=== PATIENT | female | born 1935 | race Caucasian/White ===

== ENCOUNTER → 2017-05-18 | Outpatient (CLI) | payer OTHER ==
[~2017-05-18] MED LIST: ALEVE220 M1 PO; AMITRIPTYLINE100 MG PO; AMITRYPTYLINE PO; ASPIRIN EC81 M1 PO; ASPIRIN81 MG PO; B-121000 MC1 PO; CALCIUM500 MG PO; CARBATROL100 MG PO; COLCRYS0.6 M2 PO; ENFOLAST TABLE1 EACH PO; EVISTA60 M1 PO; EVISTA60 MG PO; FENOFIBRATE67 MG PO; FISH OIL 1,0001 CAP PO; FISH OIL500 M1 PO; FLAGYL250 M1 PO; GENFIBROZIL PO; HYDROCHLOROTHIA25 MG PO; IBUPROFEN PO; IRON325 ( 65 ) PO; KCL PO; LIPITOR PO; LIPITOR40 MG PO; LISINOPRIL10 MG PO; LOPID600 MG PO; LORTAB 7.5-5001 TAB PO; MAGNESIUM GLUC200 MG PO; MAGNESIUM400 MG PO; MYRBETRIQ25 MG PO; OMEGA 3 500 SO1 EACH PO; PERCOCET 5/321 UDTAB PO; PHENERGAN PO; POTASSIUM CHLO10 ME1 PO; PRILOSEC PO; PROBIOTIC-DIGE1 EACH PO; RESTASIS32 EA OP; RESTASIS32 EA OU; TEGRETOL-XR100 MG PO; TRAMADOL HCL50 M2 PO; TRILEPTAL300 MG PO; TYLENOL PM EX-S1 TA4 PO; VICODIN 5/1 TAB 5/50 PO; VITAMIN D1000 UNIT PO; ZESTORETIC PO; ZESTRIL10 M1 PO; ZOCOR PO
--- NOTE | ~2017-05-18 | CT55 ---
[facility] A Service of [facility] RADIOLOGY TEXT RESULTS PATIENT: BEATRICE MOULTON LOCATION: [facility] : 37 UNIT #: [id number] AGE: [address]: Fauzia Ryan SEX: F ORDER DR: [id number] [address] [address] [id number] O MR#: [id number] Acc #: [id number] NAME: BEATRICE MOULTON : 1935 SEX: F STUDY DATE/TIME: 05/18/2017 12:42 UNIT: [facility] ROOM: STUDY DESCRIPTION: CT Chest W Con Attending Physician: Fazuia Ryan A.P.R.N. Referring Physician: Fauzia Ryan A.P.R.N. Ordering Physician: Fauzia Ryan A.P.R.N. Primary Care Physician: Wil Garcia M.D. MEDICAL IMAGING REPORT This report is preliminary unless electronic signature is present. EXAM CT chest INDICATIONS Pulmonary nodules. Adrenal nodule. Prior history of right-sided breast cancer and colon cancer. TECHNIQUE CT of the chest utilizing 100 mL Isovue-370 IV contrast. Coronal and sagittal reconstructions were obtained. This CT exam was performed with one or more of the following radiation dose reduction techniques: automatic exposure control, adjustment of mA and/or kV according to patient size, and iterative reconstruction. COMPARISON CT chest 04/23/2016 and 06/15/2015. FINDINGS The pulmonary nodule in the anterior aspect of the right upper lobe has slightly increased in size from prior studies. This nodule measures 1.2 x 1.1 x 1.1 cm, compared to 1 x 0.9 x 0.9 cm in October 2014. Given this minimal change, this is likely benign, however it would be reasonable to continue to follow this nodule. 3 mm right lower lobe pulmonary nodule is unchanged and considered benign. There is background emphysema. Central airways are patent. No pathologically enlarged mediastinal or hilar lymph nodes. The thoracic aorta is normal in caliber. No pericardial or pleural effusion. Patient has bilateral breast reconstruction. [facility] A Service of [facility] RADIOLOGY TEXT RESULTS PATIENT: BEATRICE MOULTON [id number] 37 UNIT #: [id number] AGE: [address]: Fauzia Ryan SEX: F ORDER DR: There is slight nodularity of the right adrenal gland without a discrete nodule. This appearance is unchanged from prior studies. IMPRESSION 1. The 1.2 cm right upper lobe pulmonary nodule has slightly changed from prior studies dating back to 2013. Given the minimal change, it is still likely benign, however should continue to be followed. The nodule is a large enough for further evaluation with PET/CT. 2. 3 mm pulmonary nodule right lower lobe is benign and unchanged from prior exams. Dictated by... Lee Quiñones M.D. THIS IS AN ELECTRONICALLY VERIFIED REPORT Lee Quiñones M.D. at 05/20/2017 2:16 PM PRADEEP/leo TD: 05/20/2017 10:21 JOB #: [id number] MEDICAL IMAGING REPORT Page 1 of 1
[2017-05-18 12:50] LABS: POC - CREATININE 0.93 mg/dL (0.44-1.03); POC - GFR >60.0 mL/min (>60)
== END | disposition home or self-care (01) ==
LOC: SCT 12:22
PROVIDERS: Nurse Practitioner Acute Care
DX: Q89.1 Congenital malformations of adrenal gland (principal); R91.8 Other nonspecific abnormal finding of lung field
CPT/HCPCS: 71260; 82565; Q9967

== ENCOUNTER 2017-06-23 14:40 | Inpatient (IN) | payer OTHER ==
[~2017-06-23] VITALS: Ht 160 cm; Wt 59.9 kg
--- NOTE | ~2017-06-23 | HP ---
Unit #: [id number] #: [id number] Patient: BEATRICE MOULTON [id number] [address] [address] [id number] I MR#: [id number] NAME: BEATRICE MOULTON. ROOM: 470 Age: 81 Sex: F Admission Date: 06/23/2017 : 1935 Attending Physician: Winston Ramirez M.D. Primary Care Physician: Wil Garcia M.D. HISTORY AND PHYSICAL ADMISSION DIAGNOSES 1. Abdominal pain. 2. Nausea, vomiting and diarrhea. 3. History of colon cancer. 4. History of breast cancer. 5. History of TMJ. 6. Osteoporosis. 7. GERD. 8. Degenerative disk disease. 9. Chronic pain. 10. Dyslipidemia. 11. Hypertension. HISTORY OF PRESENT ILLNESS Ms. Beatrice Moulton is an 81-year-old female, a patient of Dr. Garcia, who saw Dr. Kumar at the office today with the complaints of nausea, vomiting and diarrhea, along with abdominal pain for the last several days. She denies any fever, chills. Denies any bloody stools or bloody emesis. Complains of right upper quadrant pain, which is sharp, 8/10, without any radiation to any other parts of the body. Otherwise, denies any chest pain, dyspnea, dizziness, syncope, shortness of air, fever or chills. REVIEW OF SYSTEMS A 12-point review of systems on this patient is basically negative except as above. PAST MEDICAL HISTORY Significant for history of trigeminal neuralgia, hypertension, dyslipidemia, chronic pain, degenerative disk disease, osteoporosis, GERD with TMJ, colon cancer and breast cancer. PAST SURGICAL HISTORY Significant for , hysterectomy, multiple hernia repairs, appendectomy, cholecystectomy, colon resection and mastectomy. HOME MEDICATIONS Include aspirin, Lipitor, Tegretol, lisinopril, magnesium gluconate, potassium chloride, vitamin B12, fish oil, vitamin D, probiotic, Myrbetriq and Prilosec. ALLERGIES Propoxyphene, morphine, codeine, meperidine. Unit #: [id number] #: [id number] Patient: BEATRICE MOULTON SOCIAL HISTORY No current history of tobacco, alcohol or illicit drugs. FAMILY HISTORY Family history is unremarkable. PHYSICAL EXAMINATION GENERAL: The patient is an 81-year-old female in mild distress secondary to abdominal pain. Looks dehydrated. HEENT: Head is atraumatic. Pupils are equal, round and reactive to light. Oropharynx is clear. NECK: Neck is supple. No masses. No JVD. No bruit. RESPIRATORY: Chest is diminished bilaterally. CARDIOVASCULAR: S1, S2. No murmurs. ABDOMEN: Abdomen is soft but tender in the right upper quadrant without any rebound. Bowel sounds are diminished. EXTREMITIES: Lower extremities have no cyanosis, clubbing or edema. NEUROLOGIC: Patient without any focal deficits. LABS AND DIAGNOSTICS Currently pending. ASSESSMENT AND PLAN 1. Abdominal pain with nausea, vomiting and diarrhea. Will start on supportive care, symptomatic management. IV fluids. Will start on some Dilaudid and Zofran. Check stool for C. diff. Will get CT of the abdomen and pelvis without contrast since she continues with nausea, vomiting and diarrhea and appears dehydrated. I do not have her renal function. Will also get LSA consult since she carries a history of colon cancer in the past. LSA will be consulted. 2. History of colon cancer status post resection. 3. History of breast cancer status post mastectomy. 4. History of trigeminal neuralgia. 5. History of hypertension. 6. History of dyslipidemia. 7. Chronic pain and degenerative disk disease. 8. History of GERD. 9. GI and DVT prophylaxis with IV PPI and SCDs. Dictated by Tiarra Neal/zac TD: 06/24/2017 10:24 JOB #: [id number] Unit #: [id number] #: [id number] Patient: SAIGEBEATRICE Anjum HISTORY AND PHYSICAL Page 1 of 1 X Winston Ramirez MD HISTORY AND PHYSICAL
--- NOTE | ~2017-06-23 | DS ---
Unit #: [id number] #: [id number] Patient: BEATRICE MOULTON [id number] [address] [address] [id number] I MR#: [id number] NAME: BEATRICE MOULTON. ROOM: 224 Age: 81 Sex: F Admission Date: 06/23/2017 : 1935 Discharge Date: 06/29/2017 Attending Physician: Winston Ramirez M.D. Primary Care Physician: Wil Garcia M.D. DISCHARGE SUMMARY DISCHARGE DIAGNOSES 1. Abdominal pain resolved, status post surgery evaluation, continue Flagyl for a full ten days. 2. Diarrhea, which again resolved. 3. Urinary tract infection was treated with the Rocephin, status post completion. Culture showed klebsiella sensitive to Rocephin. 4. Hypertension. Continue home meds. 5. History of colon cancer. 6. History of breast cancer. 7. Dyslipidemia, will continue home meds. 8. Chronic pain that has been discharged on Percocet. DISCHARGE MEDICATIONS 1. Tegretol 100 mg p.o. q.6 hour. 2. Lactobacillus 2 tablets daily. 3. Pendergrass fatty acid capsules 500 mg daily. 4. Myrbetriq 25 mg daily. 5. Lipitor 40 mg daily. 6. Lisinopril 10 mg daily. 7. Flagyl 250 mg p.o. t.i.d. for six more days. 8. Colchicine 0.6 mg daily. 9. Aspirin 81 mg daily. 10. Percocet 5/325 1 tablet q.6 p.r.n. for pain. 11. Omeprazole 40 mg daily. 12. Magnesium tablets 250 mg q.6. 13. Potassium chloride 20 mEq p.o. t.i.d. 14. Vitamin D 1,000 units p.o. b.i.d. 15. Vitamin B12 300 mg daily. DISPOSITION Going home. FOLLOWUP Followup with the primary care physician next Monday. [facility] STAY LSA, Dr. Goyal and Nephrology, Dr. Blair. LABS, DIAGNOSTICS AND PROCEDURES 1. CT abdomen and pelvis, no acute findings, small hiatal hernia. 2. Urine culture as above, klebsiella sensitive to Rocephin. HISTORY OF PRESENT HOSPITAL STAY Please refer to H and P done by me, for initial presentation on this Unit #: [id number] #: [id number] Patient: BEATRICE MOULTON female. ACTIVE PROBLEMS AND DIAGNOSES Abdominal pain, status post evaluation by surgery stable. Continue Flagyl. Negative CT. Surgery recommendation. Continue Flagyl for ten day course for six more days. Diarrhea resolved. UTI, status post completion of antibiotics for seven days. Culture reported as above, was treated with the IV Rocephin. Hypertension, resume home meds. History of colon cancer and breast cancer. Dyslipidemia, continue home meds. Chronic pain, continue Percocet. Thrombocytopenia. Discharge date platelets 121. Monitor as an outpatient per primary. Dictated by... Tiarra Neal/vick TD: 06/30/2017 06:05 JOB #: [id number] DISCHARGE SUMMARY Page 1 of 1 X Winston Ramirez MD X DISCHARGE SUMMARY
--- NOTE | ~2017-06-23 | CO ---
Unit #: [id number] #: [id number] Patient: BEATRICE MOULTON [id number] [address] [place], [place] [address] [id number] I MR#: [id number] NAME: BEATRICE MOULTON ROOM: [facility] Age: 81 Sex: F Admission Date: 06/23/2017 : 1935 Attending Physician: Winston Ramirez M.D. Primary Care Physician: Wil Garcia M.D. Consultation Date: 06/25/2017 CONSULTATION REPORT REASON FOR CONSULTATION Acute kidney injury and electrolyte disturbance with persistent diarrhea. HISTORY OF PRESENT ILLNESS Ms. Moulton is a very pleasant 81-year-old female, who was admitted back on the with complaints of abdominal pain with diarrhea. This had been ongoing for several days before coming into the hospital. It is persisted here in the hospital. Thus far, workup has been unremarkable and she was started on Flagyl today. She is having very loose watery diarrhea on a very regular basis. We were asked to see because of an admission creatinine that was elevated. She also has had electrolyte disturbances most notably a non-anion gap acidosis and persistent hypokalemia with diarrhea. She is noted to be on lisinopril for hypertension. The patient is lying flat. She denies any chest discomfort or shortness of breath. The Reeves catheter is in place to monitor urine output with no hematuria. She denies any swelling, rashes, or itching. PAST MEDICAL HISTORY Significant for hypertension, trigeminal neuralgia, chronic pain, hyperlipidemia, degenerative disk disease, osteoporosis, GERD, TMJ. She also has a history of colon cancer and has breast cancer listed as a diagnosis. PAST SURGICAL HISTORY , hysterectomy, multiple hernia repairs, appendectomy, cholecystectomy, colon resection, and mastectomy. CURRENT MEDICATIONS As follows; Flagyl 250 mg p.o. t.i.d., IV fluids D5 normal with one amp of bicarb at 100 mL/hour, Tegretol extended release 100 mg b.i.d., baby aspirin daily, Lipitor 40 mg at bedtime, lisinopril 10 mg a day, Myrbetriq 25 mg daily, Protonix 40 mg IV daily, vitamin D 1000 units b.i.d., and p.r.n. ALLERGIES She has quoted allergies to morphine, codeine, propoxyphene, and Demerol. FAMILY HISTORY Unremarkable for kidney problems or other genetic issues. SOCIAL HISTORY The patient has no history of tobacco, alcohol, or drug use. REVIEW OF SYSTEMS Unit #: [id number] #: [id number] Patient: BEATRICE MOULTON A complete 12-point review of systems was completed with the above findings. In addition, she denies any headaches or dizziness. She does feel weak and ill. No nosebleed or sore throat. No earache. No chest pain or palpitations. No cough or hemoptysis. She does have some nausea. The diarrhea is nonbloody. No flank pain. No night sweats or hot flashes. No intolerance to heat or cold. No bleeding issues. Probable weight loss with the acute GI illness. Unless otherwise indicated, the review of systems was negative. PHYSICAL EXAMINATION VITAL SIGNS: The patient is afebrile, pulse 73, respiratory rate 16, and blood pressure 129/46. GENERAL: This is an 81-year-old female, lying flat in bed, who is alert, in no acute distress but clearly does not feel well. HEENT: Head is atraumatic and normocephalic. Eyes show pink conjunctivae with no scleral icterus. No nasal drainage or nosebleed. Oropharynx is dry with no thrush. NECK: Shows no rigidity, no JVD. HEART: Regular rate and rhythm with no significant murmur or rub appreciated. LUNGS: Clear with no wheezing or rhonchi. Breathing is nonlabored. ABDOMEN: Soft, with mild diffuse tenderness to palpation. Bowel sounds are very active. No rebound. No guarding. EXTREMITIES: No lower extremity clubbing, cyanosis, or edema. SKIN: Dry with no rashes. MUSCULOSKELETAL: No joint effusions noted. NEUROLOGICAL: Cranial nerves are grossly intact with no gross motor deficits, but she does have some generalized weakness with her illness. LYMPHATIC: There is no neck or cervical lymphadenopathy. PSYCHIATRIC: Mood and affect appear normal. DIAGNOSTIC STUDIES LABORATORY RESULTS: Fecal occult blood test was positive. Fecal lactoferrin was positive. Urinalysis today showed 1+ protein with some hyaline casts. Chemistry today showed a sodium of 139, potassium 3.3, chloride 116, bicarb 17 for an anion gap of 6, glucose 96, BUN 15, creatinine 0.9. CBC was unremarkable. Clostridium difficile toxin yesterday was negative. Creatinine on admission was 1.6 and has come down to 0.9 in the last 2 days. Bicarbonate has been consistently low since admission as has the potassium over the last few days. Magnesium was low today at 1.4. IMAGING STUDIES: CT of the abdomen and pelvis done on the was unremarkable with no acute findings. ASSESSMENT AND PLAN 1. Acute kidney injury. This looks all to be prerenal in nature from her diarrhea and she is on lisinopril as well. It looks like her creatinine is still above her traditional baseline, which looks to be in the 0.6 to 0.7 range. I will stop her lisinopril and we will continue with IV hydration. 2. Low magnesium. This has been replaced and we will recheck in the morning. 3. Hypokalemia. The patient has received a p.o. dose today and I will add some potassium to her replacement fluids. 4. Non-anion gap metabolic acidosis. We will increase the bicarbonate in her IV fluids. Unit #: [id number] #: [id number] Patient: BEATRICE MOULTON 5. Hypertension. Blood pressure is fine and with her diarrhea, we will hold her angiotensin converting enzyme inhibitor at this time. 6. Diarrhea, questionable cause. Questionable underlying colitis, but infection test have been negative. She has been started on Flagyl and Surgery is seeing. I would like to thank Dr. Adams for this consultation and the opportunity to participate in evaluation and care of Ms. Moulton. Dictated by... Wolf Blair Jr., Ximena. HOLLY/[place] TD: 06/25/2017 23:18 JOB #: [id number] CONSULTATION REPORT Page 1 of 1 X Wolf Blair MD X CONSULTATION REPORT
--- NOTE | ~2017-06-23 | CO ---
Unit #: [id number] #: [id number] Patient: BEATRICE MOULTON [id number] [address] [address] [id number] I MR#: [id number] NAME: BEATRICE MOULTON ROOM: [facility] Age: 81 Sex: F Admission Date: 06/23/2017 : 1935 Attending Physician: Winston Ramirez M.D. Primary Care Physician: Wil Garcia M.D. Consultation Date: 06/24/2017 CONSULTATION REPORT HISTORY OF PRESENT ILLNESS Ms. Moulton is an 81-year-old female, who lives alone, has a history of trigeminal neuralgia and chronic pain syndrome, who presented to her primary care physician on Monday with a 5-day history of diarrhea and then a 2-day history of nausea and vomiting. She denied any fever, chills, or night sweats. She has not had any hematemesis, hematochezia, or melena. She denied any dysuria and has not had any recent treatment with antibiotics. She does take a magnesium supplement four times a day. She denies a history of chronic diarrhea. She was directly admitted to the hospital and a CT scan of the abdomen and pelvis was obtained, which was negative for any acute findings. PAST MEDICAL HISTORY Trigeminal neuralgia, hyperlipidemia, hypertension, chronic pain syndrome, degenerative disk disease, osteoporosis, reflux, temporomandibular joint pain. She has had a previous , hysterectomy, appendectomy, cholecystectomy, colon resection, and multiple hernia repairs. ALLERGIES Her allergies include Darvocet, morphine, codeine, and Demerol. CURRENT MEDICATIONS Per the reconciliation sheet include aspirin, Lipitor, Tegretol, lisinopril, magnesium gluconate, potassium, vitamin B12, fish oil, vitamin D, probiotics, Myrbetriq, and Prilosec. FAMILY HISTORY She is unaware of any chronic or inheritable diseases. SOCIAL HISTORY Denies use of tobacco alcohol or recreational drugs. She lives alone and is retired. REVIEW OF SYSTEMS Otherwise unremarkable. PHYSICAL EXAMINATION VITAL SIGNS: Temperature is 98.4, pulse 79, respirations 17, blood pressure 139/67. GENERAL: She is awake, alert, and oriented. She complains of pain in the distribution of her trigeminal neuralgia. HEENT: Otherwise unremarkable. No scleral icterus. CARDIAC: Regular rhythm. LUNGS: Clear. Unit #: [id number] #: [id number] Patient: BEATRICE MOULTON ABDOMEN: Nondistended. She complains of diffuse tenderness, but has some increased guarding in the right upper quadrant. In the right upper quadrant, there are no rebound and no hernia. EXTREMITIES: No edema. NEUROLOGIC: Grossly intact. DIAGNOSTIC STUDIES LABORATORY RESULTS: Basic metabolic panel showed a serum CO2 of 17. Otherwise, basic metabolic panel was normal. White count 8900 with normal differential. Hemoglobin 12.8, platelets 157,000. No other labs were done. IMAGING STUDIES: CT scan verbal report shows no acute findings. No hernia. ASSESSMENT AND PLAN An 81-year-old female with nausea, vomiting, and diarrhea for several days. She denies any fever or chills and has not had any evidence of blood loss. Stool cultures have been ordered and are pending. I will get a urinalysis. Recheck her labs to include amylase and lipase and get an H pylori serology. She has not been making much urine and I believe she is dehydrated, so normal saline bolus will be administered and we will continue her IV fluids. For now, I will hold her magnesium until we get her serum magnesium level back. Dictated by... Tiarra Omalley/[place] TD: 06/24/2017 12:17 JOB #: [id number] CONSULTATION REPORT Page 1 of 1 X Uri Goyal MD CONSULTATION REPORT
--- NOTE | ~2017-06-23 | CT4 ---
[facility] A Service of [facility] RADIOLOGY TEXT RESULTS PATIENT: BEATRICE MOULTON LOCATION: [facility] 470-01 : 37 UNIT #: [id number] AGE: [address]: Winston Ramirez MD SEX: F ORDER DR: [id number] [facility] [address] [place], [place] [address] [id number] I MR#: [id number] Acc #: [id number] NAME: BEATRICE MOULTON : 1935 SEX: F STUDY DATE/TIME: 06/23/2017 20:41 UNIT: [facility] ROOM: [facility] STUDY DESCRIPTION: CT Abd and Pelv Wo Cont Attending Physician: Winston Ramirez M.D. Ordering Physician: Winston Ramirez M.D. Primary Care Physician: iWl Garcia M.D. MEDICAL IMAGING REPORT This report is preliminary unless electronic signature is present EXAM CT abdomen and pelvis without contrast HISTORY Abdomen pain for 5 days, nausea, vomiting and diarrhea. Weight loss. FINDINGS CT abdomen and pelvis was performed without contrast. This CT exam was performed with one or more of the following radiation dose reduction techniques: Automatic exposure control, adjustment of mA and/or kV according to patient size, and iterative reconstruction. CT ABDOMEN: Small hiatal hernia. Cholecystectomy. Anterior abdominal wall hernia repair with mesh graft. No hepatic mass or biliary dilatation. The spleen, pancreas, kidneys, and adrenal glands are normal. No bowel dilatation. 5.5 cm descending duodenal diverticulum. Normal caliber abdominal aorta. No adenopathy. No ascites. CT PELVIS: Hysterectomy. No free fluid. No bowel dilatation. No adenopathy or ascites. IMPRESSION 1. No acute findings in the abdomen or pelvis. 2. Small hiatal hernia. 3. Cholecystectomy and hysterectomy and anterior abdominal wall hernia repair with mesh graft. 4. Incidental 5.5 cm descending duodenal diverticulum. No bowel obstruction or urinary obstruction. Dictated by... Josue Farfan M.D. [facility] A Service of [facility] RADIOLOGY TEXT RESULTS PATIENT: BEATRICE MOULTON LOCATION: [facility] 470-01 : [birth year] UNIT #: [id number] AGE: [address]: Winston Ramirez MD SEX: F ORDER DR: THIS IS AN ELECTRONICALLY VERIFIED REPORT Josue Farfan M.D. at 06/24/2017 12:07 PM DFL/jayne TD: 06/24/2017 11:11 JOB #: [id number] MEDICAL IMAGING REPORT Page 1 of 1 COPY
--- NOTE | ~2017-06-23 | XA166 ---
[facility] A Service of [facility] RADIOLOGY TEXT RESULTS PATIENT: BEATRICE MOULTON LOCATION: [facility] 470-01 : 37 UNIT #: [id number] AGE: [address]: Winston Ramirez MD SEX: F ORDER DR: [id number] [facility] [address] [place], [place] [address] [id number] I MR#: [id number] Acc #: [id number] NAME: BEATRICE MOULTON. : 1935 SEX: F STUDY DATE/TIME: 06/26/2017 10:22 UNIT: [facility] ROOM: [facility] STUDY DESCRIPTION: XA PICC Line Placement WO Port Attending Physician: Winston Ramirez M.D. Ordering Physician: Winston Ramirez M.D. Primary Care Physician: Wil Garcia M.D. MEDICAL IMAGING REPORT This report is preliminary unless electronic signature is present EXAM Left-sided PICC line placement. INDICATION Need for IV access for a patient with abdominal pain, nausea, vomiting diarrhea. PRE-PROCEDURE The procedure was explained to the patient and/or patient direct marketing representative including risks, benefits, potential complications and potential for alternative forms of treatment. Informed consent was obtained, and prior to initiating the procedure a formal timeout procedure was performed. PROCEDURE Using full standard sterile barrier technique, including caps, gowns, gloves, masks, as well as sterile skin preparation and standard sterile draping, the arm was prepped and draped in the usual fashion, and real-time sterile ultrasound guidance was used to localize an arm vein and to confirm vessel patency. A hard copy ultrasound image was recorded. After local anesthesia with 1% Xylocaine, the vein was punctured using real-time sterile ultrasound guidance, and an 0.018 guidewire was advanced into the superior vena cava, using fluoroscopic guidance. A 5-Cypriot dual-lumen PICC was then measured and deployed with the tip positioned in the superior vena cava. The position of the line was documented with a radiographic image. The line was secured in place with an adhesive dressing and an antibiotic patch was applied. Total fluoro time was 0.4 minutes using 3 mGy. IMPRESSION Successful placement of a 5-Cypriot dual-lumen PowerPICC via the arm under ultrasound and fluoroscopic guidance. The tip of the PICC is in good position in the superior vena cava. [facility] A Service of [facility] RADIOLOGY TEXT RESULTS PATIENT: BEATRICE MOULTON LOCATION: [facility] 470- : 37 UNIT #: [id number] AGE: [address]: Winston Ramirez MD SEX: F ORDER DR: Dictated by... Gayle Perez M.D. THIS IS AN ELECTRONICALLY VERIFIED REPORT Gayle Perez M.D. at 06/27/2017 4:54 PM AFF/gz TD: 06/27/2017 13:04 JOB #: [id number] MEDICAL IMAGING REPORT Page 1 of 1 COPY
[~2017-06-23 14:40] MED LIST changes: -FLAGYL250 M1 PO; -MYRBETRIQ25 MG PO; -OMEGA 3 500 SO1 EACH PO; -PERCOCET 5/321 UDTAB PO; -PROBIOTIC-DIGE1 EACH PO; -VITAMIN D1000 UNIT PO
[2017-06-23] MEDS ORDERED: VITAMIN D1000 UNIT PO (18:53)
[2017-06-23] MEDS ORDERED: PROBIOTIC-DIGE1 EACH PO (18:59)
[2017-06-23] MEDS ORDERED: MYRBETRIQ25 MG PO (19:00)
[2017-06-23] MEDS ORDERED: PRILOSEC PO (19:01)
[2017-06-23 20:17] LABS: HEMATOCRIT 43.4 % (35.0-45.0); MEAN CELL VOLUME 89.2 FL (83-96); MEAN CORPUSCULAR HEMOGLOBIN 28.8 PG (28-34); MEAN CORPUSCULAR HGB CONC 32.3 g/dL (30-36); MEAN PLATELET VOLUME 9.8 FL (6.5-11.5); RED BLOOD COUNT 4.87 X10e (3.90-5.30); RED CELL DISTRIBUTION WIDTH 15.7 % (11.0-15.5); WHITE BLOOD COUNT 10.4 X10e3 (4.0-10.5)
[2017-06-23 20:43] LABS: BUN/CREATININE RATIO 22.5; CALCIUM SERUM 9.2 mg/dL (8.4-10.2); CREATININE SERUM 1.6 mg/dL (0.6-1.4); GLOM FILT RATE Estimated 30.1 mL/min (>60); POTASSIUM 4.1 mmol/L (3.5-5.1)
[2017-06-24 03:45] LABS: HEMOGLOBIN 12.8 gm/dL (12.0-16.0); MEAN CORPUSCULAR HGB CONC 32.9 g/dL (30-36); MEAN PLATELET VOLUME 10.3 FL (6.5-11.5); RED BLOOD COUNT 4.43 X10e (3.90-5.30); WHITE BLOOD COUNT 8.9 X10e3 (4.0-10.5)
[2017-06-24 04:07] LABS: BUN/CREATININE RATIO 37.77; CREATININE SERUM 0.9 mg/dL (0.6-1.4); GLOM FILT RATE Estimated 60.4 mL/min (>60); POTASSIUM 3.7 mmol/L (3.5-5.1)
[2017-06-24 08:50] LABS: ALBUMIN SERUM 3.7 g/dL (3.5-5.0); BILIRUBIN,TOTAL 0.5 mg/dL (0.2-2.0); BUN/CREATININE RATIO 32.22; CALCIUM SERUM 8.7 mg/dL (8.4-10.2); CREATININE SERUM 0.9 mg/dL (0.6-1.4); GLOM FILT RATE Estimated 60.4 mL/min (>60); MAGNESIUM 1.4 mg/dL (1.6-3.0); PHOSPHOROUS 3.3 mg/dL (2.5-4.6); POTASSIUM 3.4 mmol/L (3.5-5.1); PROTEIN TOTAL SERUM 6.3 g/dL (6.0-8.3)
[2017-06-24 17:07] LABS: URINE APPEARANCE CLEAR; URINE BILIRUBIN NEG (NEG); URINE BLOOD NEG (NEG); URINE COLOR YELLOW; URINE GLUCOSE NEG (NEG); URINE KETONE NEG (NEG); URINE LEUKOCYTE ESTERASE NEG (NEG); URINE NITRATE NEG (NEG); URINE PH 5.5 (5-8); URINE PROTEIN TRACE (NEG); URINE SPECIFIC GRAVITY 1.019 (1.003-1.035); URINE UROBILINOGEN 0.2 MG/DL (NEG)
[2017-06-25 03:34] LABS: BASOPHIL% 0.3 % (0-2.5); EOSINOPHIL# 0.1 X10e3 (0-0.7); EOSINOPHIL% 1.1 % (0.0-7.0); HEMATOCRIT 36.5 % (35.0-45.0); LYMPHOCYTE# 1.8 X10e3 (1.0-3.5); LYMPHOCYTE% 22.5 % (17.0-45.0); MEAN CELL VOLUME 88.9 FL (83-96); MEAN CORPUSCULAR HEMOGLOBIN 29.3 PG (28-34); MEAN CORPUSCULAR HGB CONC 32.9 g/dL (30-36); MEAN PLATELET VOLUME 9.8 FL (6.5-11.5); MONOCYTE# 0.8 X10e3 (0-1.0); MONOCYTE% 10.6 % (3.0-12.0); NEUTROPHIL# 5.1 X10e3 (1.5-7.1); NEUTROPHIL% 65.5 % (40-75); PLATELET COUNT 140 X10e3 (140-420); RED BLOOD COUNT 4.11 X10e (3.90-5.30); RED CELL DISTRIBUTION WIDTH 15.4 % (11.0-15.5); WHITE BLOOD COUNT 7.8 X10e3 (4.0-10.5)
[2017-06-25 03:35] LABS: DIFF IND NO
[2017-06-25 04:17] LABS: BUN/CREATININE RATIO 16.66; CALCIUM SERUM 8.5 mg/dL (8.4-10.2); CREATININE SERUM 0.9 mg/dL (0.6-1.4); GLOM FILT RATE Estimated 60.4 mL/min (>60); POTASSIUM 3.3 mmol/L (3.5-5.1)
[2017-06-25 12:32] LABS: URINE APPEARANCE CLOUDY; URINE BILIRUBIN NEG (NEG); URINE BLOOD NEG (NEG); URINE COLOR YELLOW; URINE GLUCOSE NEG (NEG); URINE KETONE NEG (NEG); URINE LEUKOCYTE ESTERASE NEG (NEG); URINE NITRATE NEG (NEG); URINE PH 5.5 (5-8); URINE PROTEIN 1+ (NEG); URINE SPECIFIC GRAVITY 1.021 (1.003-1.035); URINE UROBILINOGEN 0.2 MG/DL (NEG)
[2017-06-25 12:36] LABS: URINE BACTERIA AUWI NEG (NEGATIVE); URINE SQUAMOUS EPITHELIAL CELL MOD /[HPF]
[2017-06-25 13:10] LABS: URINE MUCUS PRESENT
[2017-06-26 03:31] LABS: BASOPHIL% 0.3 % (0-2.5); DIFF IND NO; EOSINOPHIL# 0.1 X10e3 (0-0.7); EOSINOPHIL% 1.3 % (0.0-7.0); HEMATOCRIT 33.8 % (35.0-45.0); HEMOGLOBIN 11.3 gm/dL (12.0-16.0); LYMPHOCYTE# 1.5 X10e3 (1.0-3.5); LYMPHOCYTE% 23.5 % (17.0-45.0); MEAN CELL VOLUME 87.4 FL (83-96); MEAN CORPUSCULAR HEMOGLOBIN 29.3 PG (28-34); MEAN CORPUSCULAR HGB CONC 33.5 g/dL (30-36); MEAN PLATELET VOLUME 9.3 FL (6.5-11.5); MONOCYTE# 0.8 X10e3 (0-1.0); MONOCYTE% 13.1 % (3.0-12.0); NEUTROPHIL% 61.8 % (40-75); PLATELET COUNT 125 X10e3 (140-420); RED BLOOD COUNT 3.87 X10e (3.90-5.30); WHITE BLOOD COUNT 6.5 X10e3 (4.0-10.5)
[2017-06-26 03:59] LABS: BUN/CREATININE RATIO 11.66; CALCIUM SERUM 8.6 mg/dL (8.4-10.2); CREATININE SERUM 0.6 mg/dL (0.6-1.4); GLOM FILT RATE Estimated 86.1 mL/min (>60); MAGNESIUM 1.3 mg/dL (1.6-3.0); PHOSPHOROUS 2.4 mg/dL (2.5-4.6); POTASSIUM 3.2 mmol/L (3.5-5.1)
[2017-06-26] MEDS ORDERED: COLCRYS0.6 M2 PO (22:20)
[2017-06-27 03:14] LABS: BASOPHIL% 0.4 % (0-2.5); EOSINOPHIL% 0.5 % (0.0-7.0); HEMATOCRIT 32.8 % (35.0-45.0); HEMOGLOBIN 11.3 gm/dL (12.0-16.0); LYMPHOCYTE# 1.4 X10e3 (1.0-3.5); LYMPHOCYTE% 15.2 % (17.0-45.0); MEAN CELL VOLUME 85.4 FL (83-96); MEAN CORPUSCULAR HEMOGLOBIN 29.5 PG (28-34); MEAN CORPUSCULAR HGB CONC 34.6 g/dL (30-36); MEAN PLATELET VOLUME 9.2 FL (6.5-11.5); MONOCYTE% 11.7 % (3.0-12.0); NEUTROPHIL# 6.5 X10e3 (1.5-7.1); NEUTROPHIL% 72.2 % (40-75); PLATELET COUNT 114 X10e3 (140-420); RED BLOOD COUNT 3.84 X10e (3.90-5.30); RED CELL DISTRIBUTION WIDTH 14.9 % (11.0-15.5); WHITE BLOOD COUNT 8.9 X10e3 (4.0-10.5)
[2017-06-27 03:15] LABS: DIFF IND NO
[2017-06-27 03:55] LABS: ALBUMIN SERUM 3.2 g/dL (3.5-5.0); BILIRUBIN,TOTAL 0.3 mg/dL (0.2-2.0); CALCIUM SERUM 8.1 mg/dL (8.4-10.2); CREATININE SERUM 0.5 mg/dL (0.6-1.4); GLOM FILT RATE Estimated 91.4 mL/min (>60); MAGNESIUM 1.4 mg/dL (1.6-3.0); PHOSPHOROUS 2.2 mg/dL (2.5-4.6); PROTEIN TOTAL SERUM 5.4 g/dL (6.0-8.3)
[2017-06-28 07:14] LABS: HEMATOCRIT 33.3 % (35.0-45.0); HEMOGLOBIN 11.4 gm/dL (12.0-16.0); MEAN CELL VOLUME 85.7 FL (83-96); MEAN CORPUSCULAR HEMOGLOBIN 29.4 PG (28-34); MEAN CORPUSCULAR HGB CONC 34.3 g/dL (30-36); MEAN PLATELET VOLUME 10.1 FL (6.5-11.5); RED BLOOD COUNT 3.88 X10e (3.90-5.30); RED CELL DISTRIBUTION WIDTH 15.4 % (11.0-15.5); WHITE BLOOD COUNT 11.1 X10e3 (4.0-10.5)
[2017-06-28 07:51] LABS: BUN/CREATININE RATIO 22.5; CALCIUM SERUM 8.4 mg/dL (8.4-10.2); CREATININE SERUM 0.4 mg/dL (0.6-1.4); GLOM FILT RATE Estimated 98.4 mL/min (>60); MAGNESIUM 1.7 mg/dL (1.6-3.0); PHOSPHOROUS 2.9 mg/dL (2.5-4.6); POTASSIUM 4.3 mmol/L (3.5-5.1)
[2017-06-29 06:14] LABS: HEMOGLOBIN 10.9 gm/dL (12.0-16.0); MEAN CELL VOLUME 86.8 FL (83-96); MEAN CORPUSCULAR HEMOGLOBIN 28.7 PG (28-34); MEAN CORPUSCULAR HGB CONC 33.1 g/dL (30-36); MEAN PLATELET VOLUME 9.8 FL (6.5-11.5); RED BLOOD COUNT 3.8 X10e (3.90-5.30); RED CELL DISTRIBUTION WIDTH 15.1 % (11.0-15.5); WHITE BLOOD COUNT 8.8 X10e3 (4.0-10.5)
[2017-06-29 07:05] LABS: MAGNESIUM 1.8 mg/dL (1.6-3.0); POTASSIUM 4.2 mmol/L (3.5-5.1)
[2017-06-29] MEDS ORDERED: OMEGA 3 500 SO1 EACH PO (21:13)
[2017-06-29] MEDS ORDERED: PERCOCET 5/321 UDTAB PO (21:25)
[2017-06-29] MEDS ORDERED: FLAGYL250 M1 PO (21:26)
== END 2017-06-29 21:46 | disposition home health service (06) | DRG 392 ==
LOC: C2A 14:40 → C4B 14:40 → C4C 18:10 → C2A 06-27 21:35
PROVIDERS: Hospitalist; Internal Medicine Nephrology; Physician Assistant Medical; Specialist
PROC: 02HV33Z Insertion of Infusion Device into Superior Vena Cava, Percutaneous Approach (ICD-10-PCS; principal; 2017-06-26)
PROC: B518YZA Fluoroscopy of Superior Vena Cava using Other Contrast, Guidance (ICD-10-PCS; 2017-06-26)
PROC: B548ZZA Ultrasonography of Superior Vena Cava, Guidance (ICD-10-PCS; 2017-06-26)
DX: R10.9 Unspecified abdominal pain (principal); N17.9 Acute kidney failure, unspecified; E87.2 Acidosis; E86.0 Dehydration; D69.6 Thrombocytopenia, unspecified; E83.42 Hypomagnesemia; N39.0 Urinary tract infection, site not specified; R19.7 Diarrhea, unspecified; R11.2 Nausea with vomiting, unspecified; I10 Essential (primary) hypertension; E78.5 Hyperlipidemia, unspecified; Z85.038 Personal history of other malignant neoplasm of large intestine; Z85.3 Personal history of malignant neoplasm of breast; G89.4 Chronic pain syndrome; G50.0 Trigeminal neuralgia; M81.0 Age-related osteoporosis without current pathological fracture; Z90.710 Acquired absence of both cervix and uterus; Z90.49 Acquired absence of other specified parts of digestive tract; Z79.82 Long term (current) use of aspirin; K21.9 Gastro-esophageal reflux disease without esophagitis; E87.6 Hypokalemia
CPT/HCPCS: 74176; 76937; 77001; 80048; 80053; 81003; 82150; 82274; 82947; 83630; 83690; 83735; 84100; 84132; 84550; 85025; 85027; 86677; 87045; 87086; 87088; 87177; 87186; 87209; 87427; 87493; 87899; 97110; 97116; 97162; 97166; C1751; C9113; G8978-GP; G8979-GP; G8980-GP; G8987-GO; G8988-GO; G8989-GO; J0696; J1170; J1642; J2405; J2930; J3475; J3480; J7042